=== PATIENT | female | born 1940 | race Caucasian/White ===

== ENCOUNTER → 2018-06-03 | Outpatient (CLI) | payer OTHER | LOC: M.RAD 08:38 | DX: M81.0 Age-related osteoporosis without current pathological fracture (principal); Z86.39 Personal history of other endocrine, nutritional and metabolic disease ==

== ENCOUNTER → 2018-09-25 | Outpatient (CLI) | payer OTHER | LOC: M.LAB 09:07 | DX: E87.6 Hypokalemia (principal) ==

== ENCOUNTER → 2019-02-16 | Outpatient (CLI) | payer OTHER | LOC: M.ULTRA 12:12 | DX: M79.89 Other specified soft tissue disorders (principal) ==

== ENCOUNTER 2019-06-15 10:36 | Inpatient (IN) | payer OTHER ==
[~2019-06-15] VITALS: Ht 167.6 cm; Wt 84.8 kg
--- NOTE | ~2019-06-15 | CON ---
[address] [address] CONSULTATION Name: AARONLETA L Room: [address] IN .R.#: [id number] Admission: 06/15/19 Attend Phys: Mary Munroe Discharge: Date of : 42 Report #: [id number] THIS REPORT FOR: //name// cc: Eliska. AVNI Light Eliska. AVNI ~ THIS REPORT FOR: //name// CC: Eliska. Kuldeep Corona CONSULTING PHYSICIAN: Edil Corona DO REASON FOR CONSULTATION: Hyponatremia. HISTORY OF PRESENT ILLNESS: A 79-year-old female with underlying mild dementia, who was admitted for altered behavior. She was found to be hyponatremic with a sodium of 117 yesterday. She has had some weight loss. 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 Pulmonology is following. She has been treated with saline. GI has also been consulted to evaluate swallow function. She currently appears to be comfortable, has no significant complaints, but has had rather significant weight loss on the order of 50 pounds over the past year. REVIEW OF SYSTEMS: Constitutional, psych, heme, eyes, ENT, respiratory, cardiac, GI, , endocrine all negative except as documented above. PAST MEDICAL HISTORY: History of mild dementia, osteoporosis, hip replacement, appendectomy, cholecystectomy, and hypertension. SOCIAL HISTORY: Prior history of smoking. No alcohol. FAMILY HISTORY: Not pertinent in this 79-year-old female. CURRENT MEDICATIONS: Reviewed. PHYSICAL EXAMINATION: VITAL SIGNS: Blood pressure is 165/82, pulse 82, respirations 16, temperature 37.0. GENERAL: No acute distress. EYES: Open. EARS: Externally normal. NECK: Supple. CARDIOVASCULAR: Regular rate. LUNGS: Diminished breath sounds. ABDOMEN: Soft. MUSCULOSKELETAL: [place] [address] CONSULTATION Name: LETA WALKER Qasim Room: [address] IN [facility]#: [id number] Admission: 06/15/19 Attend Phys: Mary Munroe Discharge: Date of : 42 Report #: [id number] PSYCHIATRIC: Awake, alert. LABORATORY DATA: Sodium 118, potassium was 4.6, chloride 85, bicarbonate 22, BUN 7, creatinine 0.3, glucose 90, calcium 8, COVID-19 PCR was negative. Yesterday's white cell count 4.5, hemoglobin 15.1, and platelets 207. ASSESSMENT: 1. Hyponatremia with sodium of 117 on 06/14. Prior value is not available. 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 She had a 50-pound weight loss over the past year. CT head with no acute findings. There is some mention of cirrhosis on imaging as well. 2. COVID-19 negative. 3. Cirrhosis suggested on CT scan. 4. Mild dementia. 5. Mild aortic stenosis with an EF of 55-60%. 6. Mild pericardial effusion on echo. 7. Osteoporosis. PLAN: Sodium is unchanged. She is on normal saline. We will discontinue that. Send a urine sodium, urine osmolarity, urine potassium as well as a TSH. Start 3% saline with parameters to stop it, so that we do not rapidly correct it and we will monitor sodium every 4 hours. Case was discussed with Dr. Corona and the patient's nurse. Pulmonology is following for the suspected pulmonary malignancy. Thank you for requesting my opinion in the care and management of this patient. By: [id number] Beto Steiner MD /arun
[2019-06-15 10:48] VITALS: BP 151/79
[2019-06-15 11:07] LABS: APTT 28.2 Seconds (25.0-31.3)
[2019-06-15 11:20] LABS: ALBUMIN 3.7 g/dL (3.4-5.0); CALCIUM 8.2 mg/dL (8.5-10.1); CK-MB MASS 1.5 ng/mL (<0.5-3.6); CREATININE 0.6 mg/dL (0.6-1.3); POTASSIUM 3.8 mmol/L (3.5-5.1); TOTAL BILIRUBIN 0.8 mg/dL (<0.1-1.0); TOTAL PROTEIN 7.8 g/dL (6.4-8.2)
[2019-06-15 11:27] LABS: ABSOLUTE BASOPHILS 0.1 thou/uL (0.0-0.2); ABSOLUTE EOSINOPHILS 0.1 thou/uL (0.0-0.7); ABSOLUTE LYMPHOCYTES 0.6 thou/uL (0.8-5.3); ABSOLUTE MONOCYTES 0.4 thou/uL (0.0-1.2); ABSOLUTE NEUTROPHILS 3.3 thou/uL (1.6-8.1); HEMATOCRIT 41.8 % (37.0-47.0); HEMOGLOBIN 15.1 gm/dL (12.0-15.0); LYMPHOCYTES 12.6 %; MCH 30.7 pg (26.0-34.0); MCHC 36.2 g/dL (28.0-37.0); MONOCYTES 8.4 %; MPV 6.6 fl. (7.2-11.1); NUCLEATED RBCS 0 /100WBC; PLATELET COUNT* 207 thou/uL (150-400); RBC 4.92 mil/uL (4.20-5.00); RDW-CV 14.5 % (10.5-14.5); WBC 4.5 thou/uL (4.0-11.0)
[2019-06-15] MEDS ORDERED: OMEPRAZOLE40 MG PO (11:44)
[2019-06-15] MEDS ORDERED: BUSPIRONE HCL5 MG PO (11:45)
[2019-06-15] MEDS ORDERED: FOSAMAX 70 MG T70 MG PO (11:46)
[2019-06-15 13:04] LABS: URINE BILIRUBIN NEGATIVE (Negative); URINE BLOOD TRACE (Negative); URINE CLARITY CLEAR; URINE COLOR YELLOW; URINE GLUCOSE-RANDOM NEGATIVE (Negative); URINE KETONES TRACE (Negative); URINE LEUKOCYTES-REFLEX NEGATIVE (Negative); URINE NITRITE-REFLEX NEGATIVE (Negative); URINE PROTEIN NEGATIVE (Negative); URINE UROBILINOGEN 0.2 E.U./dl (0.2-1.0)
--- NOTE | 2019-06-15 15:03 | EKG ---
[place] [address] ELECTROCARDIOGRAM REPORT Name: WALKERLETA L Room: [place] [address] ADM IN [facility]#: [id number] Admission: 06/15/19 Attend Phys: Edil Corona Discharge: Date of : 42 Date of Service: 06/15/19 1043 Report #: [id number] THIS REPORT FOR: //name// [facility] ED Test Date: 2019-06-15 Test Time: 10:43:12 Pat Name: LETA WALKER Department: Room: [facility] Gender: F Security Intelligence Analyst: veronica : 1940 Requested By: Gildardo Henderson Order Number: [id number] MD: Edin Youngblood Measurements Intervals [place] Rate: 81 P: 54 FL: 174 QRS: 54 QRSD: 96 T: 62 QT: 368 QTc: 428 Interpretive Statements Sinus rhythm Nonspecific T abnormalities, anterior leads No previous ECG available for comparison Electronically Signed On 06-15-2019 15:01:30 CDT by Edin Youngblood [email or web address] <ELECTRONICALLY SIGNED> By: Edin Youngblood MD, [facility] 06/15/19 1501 1043 1043 Edin Youngblood MD, [facility] /EPI
[2019-06-15 15:49] VITALS: BP 154/69
[2019-06-15 17:30] VITALS: BP 163/78
[2019-06-15 21:00] VITALS: BP 170/79
[2019-06-15 23:33] VITALS: BP 151/70
[2019-06-15 23:34] VITALS: BP 134/77; BP 159/78
[2019-06-16 04:44] VITALS: BP 161/80
[2019-06-16 05:25] LABS: CALCIUM 7.8 mg/dL (8.5-10.1); CREATININE 0.6 mg/dL (0.6-1.3)
[2019-06-16 08:03] VITALS: BP 160/70
[2019-06-16 11:13] LABS: CALCIUM 8.2 mg/dL (8.5-10.1); CREATININE 0.6 mg/dL (0.6-1.3); MAGNESIUM 1.7 mg/dL (1.8-2.4); POTASSIUM 3.9 mmol/L (3.5-5.1)
[2019-06-16 12:00] VITALS: BP 150/88
[2019-06-16 16:00] VITALS: BP 160/80
--- NOTE | 2019-06-16 16:35 | 2DMMODE ---
[place] [address] 2 D/M-MODE ECHOCARDIOGRAM Name: LETA WALKER Room: [address] IN [facility]#: [id number] Admission: 06/15/19 Attend Phys: Edil Corona Discharge: Date of : 42 Date of Service: 06/16/19 1633 Report #: [id number] THIS REPORT FOR: cc: Vincenzo Light. Vincenzo Nagy. Kevin Stover MD [facility] ~ APPROVED REPORT Study performed: 06/16/2019 15:45:07 EXAM: Comprehensive 2D, Doppler, and color-flow Echocardiogram Patient Location: In-Patient Room #: [facility] Status: routine BSA: 1.83 HR: 76 bpm BP: 150/88 mmHg Rhythm: NSR Other Information Study Quality: Good Indications EDEMA 2D Dimensions IVSd: 9.78 (7-11mm) LVOT Diam: 19.71 (18-24mm) LVDd: 43.91 mm PWd: 8.49 (7-11mm) LVDs: 27.58 (25-40mm) Aortic Root: 28.74 mm Volumes Left Atrial Volume (Systole) LA ESV Index: 26.50 mL/m2 Aortic Valve AoV Peak Abhijit.: 1.71 m/s AO Peak Gr.: 11.71 mmHg LVOT Max P.11 mmHg AO Mean Gr.: 6.92 mmHg LVOT Mean P.52 mmHg LVOT Max V: 1.13 m/s AO V2 VTI: 37.86 cm LVOT Mean V: 0.73 m/s ABIEL (VTI): 1.96 cm2 LVOT V1 VTI: 24.33 [place] [address] 2 D/M-MODE ECHOCARDIOGRAM Name: LETA WALKER Room: [address] IN ..#: [id number] Admission: 06/15/19 Attend Phys: Edil Corona Discharge: Date of : 42 Date of Service: 06/16/19 1633 Report #: [id number] Mitral Valve E/A Ratio: 0.76 MV Decel. Time: 258.99 ms MV E Max Abhijit.: 0.83 m/s MV PHT: 75.11 ms MVA (PHT): 2.93 cm2 TDI E/Lateral E': 10.38 E/Medial E': 10.38 Medial E' Abhijit.: 0.08 m/s Lateral E' Abhijit.: 0.08 m/s Pulmonary Valve PV Peak Abhijit.: 0.98 m/s PV Peak Gr.: 3.85 mmHg Tricuspid Valve RAP Estimate: 5.00 mmHg TR Peak Gr.: 23.35 mmHg RVSP: 28.00 mmHg PA Pressure: 28.00 mmHg Left Ventricle The left ventricle is normal size. There is normal LV segmental wall motion. There is normal left ventricular wall thickness. Left ventricular systolic function is normal. LVEF is 55-60%. Transmitral Doppler flow pattern suggests impaired LV relaxation. Right Ventricle The right ventricle is normal size. The right ventricular systolic function is normal. Atria The left atrium size is normal. The right atrium size is normal. Aortic Valve Mild aortic valve sclerosis. No aortic regurgitation is present. Mild aortic stenosis. Mitral Valve The mitral valve is normal in structure. Trace mitral regurgitation. No evidence of mitral valve stenosis. Tricuspid Valve The tricuspid valve is normal in structure. Trace tricuspid regurgitation. [place] [address] 2 D/M-MODE ECHOCARDIOGRAM Name: LETA WALKER Room: [address]#: [id number] Admission: 06/15/19 Attend Phys: Edil Corona Discharge: Date of : 42 Date of Service: 06/16/19 1633 Report #: [id number] Pulmonic Valve The pulmonary valve is normal in structure. There is no pulmonic valvular regurgitation. Great Vessels The aortic root is normal in size. IVC is normal in size and collapses >50% with inspiration. Pericardium Mild circumferential pericardial effusion. No echo indications of pericardial tamponade. <Conclusion> The left ventricle is normal size. There is normal left ventricular wall thickness. Left ventricular systolic function is normal. LVEF is 55-60%. Transmitral Doppler flow pattern suggests impaired LV relaxation. Mild aortic valve sclerosis. Mild aortic stenosis. Trace mitral regurgitation. Trace tricuspid regurgitation. No pulmonary hypertension. IVC is normal in size and collapses >50% with inspiration. Mild circumferential pericardial effusion. No echo indications of pericardial tamponade. <ELECTRONICALLY SIGNED> By: Kevin Majano MD, FACC 06/16/19 1633 1633 1633 Kevin Majano MD, FACC /INF
[2019-06-16 19:45] VITALS: BP 172/82
[2019-06-17 00:05] VITALS: BP 168/78
[2019-06-17 08:00] VITALS: BP 174/77
[2019-06-17 08:15] VITALS: BP 174/77
--- NOTE | 2019-06-17 08:27 | EKG ---
[place] [address] ELECTROCARDIOGRAM REPORT Name: LETA WALKER Room: [address] ADM IN M.R.#: [id number] Admission: 06/15/19 Attend Phys: Edil Corona Discharge: Date of : 42 Date of Service: 06/16/19 1043 Report #: [id number] THIS REPORT FOR: //name// [facility] ED Test Date: 2019-06-16 Test Time: 10:43:26 Pat Name: LETA WALKER Department: Room: [address] Gender: F Cotton Factor: CHRISTINA : 1940 Requested By: Edil Corona Order Number: [id number] Reading MD: Kevin Majano Measurements Intervals [place] Rate: 81 P: [place]: QRS: 24 QRSD: 98 T: 35 QT: 393 QTc: 457 Interpretive Statements Sinus rhythm Ventricular premature complex Artifact Baseline wander in lead(s) V2 Compared to ECG 06/15/2019 10:43:12 Ventricular premature complex(es) now present T-wave abnormality no longer present Electronically Signed On 06-17-2019 8:26:00 CDT by Kevin Majano [email or web address] <ELECTRONICALLY SIGNED> By: Kevin Majano MD, FACC 06/17/19 0826 1043 1043 Kevin Majano MD, FAC /EPI
[2019-06-17 09:12] LABS: CREATININE 0.3 mg/dL (0.6-1.3); POTASSIUM 4.6 mmol/L (3.5-5.1)
[2019-06-17 10:49] VITALS: BP 165/82
[2019-06-17 12:55] LABS: URINE POTASSIUM-RANDOM 17.4 mmol/L
[2019-06-17 16:23] VITALS: BP 158/65
[2019-06-17 20:00] VITALS: BP 149/86
[2019-06-18] VITALS (8 sets, daily range): BP systolic 127–184; BP diastolic 77–89
--- NOTE | 2019-06-18 08:19 | CON ---
[address] [address] CONSULTATION Name: AARONLETA L Room: [address] IN .R.#: [id number] Admission: 06/15/19 Attend Phys: Mary Munroe Discharge: Date of : 42 Report #: [id number] THIS REPORT FOR: //name// cc: Vincenzo Light. Vincenzo Nagy. AVNI ~ THIS REPORT FOR: //name// CC: Eliska. Kuldeep Corona DATE OF SERVICE: 06/17/2019 HISTORY OF PRESENT ILLNESS: This is a pleasant 79-year-old female. REASON FOR GI CONSULTATION: Trouble swallowing. The patient has dementia and is unable to provide history, and I tried contacting her significant other, Mr. Liang Montgomery, but I was unable to reach him via phone. History has been therefore obtained from the chart. It appears that the patient was brought in because of increased confusion and over the course of hospitalization has been diagnosed with severe hyponatremia. The patient reports difficulty swallowing, mostly to solids not liquids. She cannot give me an estimate of how much time this has been going on for. She denies any pain on swallowing and passed bedside swallow evaluation. PAST MEDICAL HISTORY: Hypertension, dementia. PAST SURGICAL HISTORY: Left hip replacement, total abdominal hysterectomy, appendectomy, cholecystectomy. SOCIAL HISTORY: The patient quit smoking well over 50 years back. Denies alcohol or recreational drug use. FAMILY HISTORY: Not known. REVIEW OF SYSTEMS: Comprehensive 10-point review of systems is negative except for what was mentioned in the HPI. PHYSICAL EXAMINATION: GENERAL: The patient is alert and awake VITAL SIGNS: Temperature 37.0, pulse rate 82, respirations 16, blood pressure 165/82, pulse oximetry 98% on room air. HEENT: The patient mucous membranes are moist. There is no congestion. LUNGS: Clear to auscultation bilaterally. CARDIOVASCULAR: Rate and rhythm regular, S1, S2 present. ABDOMEN: Soft. There is no distention, guarding or rigidity. EXTREMITIES: Warm, well perfused. [place] [address] CONSULTATION Name: LETA WALKER Room: [address] IN [facility]#: [id number] Admission: 06/15/19 Attend Phys: Mary Munroe Discharge: Date of : 42 Report #: [id number] SKIN: Warm and dry. LABORATORY DATA: Hemoglobin 14.1, hematocrit 41.8, platelet count 207, WBC count 4.5. Sodium 118, potassium 4.6, chloride 85, bicarbonate 22, BUN 7, creatinine 0.3. INR 1.0. IMAGING: Chest CT; this shows a large infiltrative soft tissue mass within the right paratracheal hilar region, most consistent with primary pulmonary malignancy and metastatic lymphadenopathy. This encases and narrows the proximal right main stem bronchus. Bulky adenopathy within the anterior mediastinum posterior to the clavicular heads, consistent with metastatic disease. Small indeterminate nodules in the lungs, which may represent metastatic disease. Nodular contour of liver suggesting underlying cirrhosis. ASSESSMENT AND PLAN: This is a pleasant 79-year-old female presenting with confusion. She has a baseline history of dementia. PROBLEM: Dysphagia. The patient has bulky mediastinal lymphadenopathy and mass, and this is contributing to her dysphagia. She will need an EGD for evaluation; however, sodium is too low to allow for EGD. Once her sodium is above 130 we can consider doing an upper GI endoscopy. The patient will also need an EUS for evaluation of her pulmonary masses and hilar disease. However, this is available at [place] and the patient will need to be transferred to [place] for this. Before we proceed with any other procedures, we will have to await the patient's sodium to improve. Thank you for this consultation. <ELECTRONICALLY SIGNED> By: Evans Jones MD 06/18/19 0819 1243 [id number] Jones MD /nt
[2019-06-18 10:30] LABS: CALCIUM 8.3 mg/dL (8.5-10.1); CREATININE 0.6 mg/dL (0.6-1.3); MAGNESIUM 1.7 mg/dL (1.8-2.4); POTASSIUM 3.1 mmol/L (3.5-5.1)
[2019-06-18 11:40] LABS: ALBUMIN 3.4 g/dL (3.4-5.0); TOTAL PROTEIN 7.4 g/dL (6.4-8.2)
[2019-06-18 21:31] LABS: POTASSIUM 3.9 mmol/L (3.5-5.1)
[2019-06-19] VITALS: BP 176/81
[2019-06-19 04:00] VITALS: BP 181/88
[2019-06-19 08:00] VITALS: BP 174/86
[2019-06-19 12:02] VITALS: BP 168/81
[2019-06-19 12:32] LABS: CALCIUM 8.5 mg/dL (8.5-10.1); CREATININE 0.7 mg/dL (0.6-1.3); POTASSIUM 4.1 mmol/L (3.5-5.1)
[2019-06-19 12:51] LABS: MAGNESIUM 1.9 mg/dL (1.8-2.4)
== END 2019-06-19 18:55 | disposition short-term general hospital (02) | DRG 643 ==
LOC: M.ERS 10:36 → M.ORTHSURG 12:27 → M.TBA-ER 12:27 → M.ORTHSURG 16:05 → M.2W 06-17 10:22
PROVIDERS: Family Medicine; Internal Medicine Nephrology; ADMIT Internal Medicine
PROC: 05HY33Z Insertion of Infusion Device into Upper Vein, Percutaneous Approach (ICD-10-PCS; principal; 2019-06-16)
DX: E22.2 Syndrome of inappropriate secretion of antidiuretic hormone (principal); G93.41 Metabolic encephalopathy; I31.3 Pericardial effusion (noninflammatory); F03.90 Unspecified dementia, unspecified severity, without behavioral disturbance, psychotic disturbance, mood disturbance, and anxiety; I10 Essential (primary) hypertension; M81.0 Age-related osteoporosis without current pathological fracture; Z20.828 Contact with and (suspected) exposure to other viral communicable diseases; K74.60 Unspecified cirrhosis of liver; I35.0 Nonrheumatic aortic (valve) stenosis; Z96.642 Presence of left artificial hip joint; R13.10 Dysphagia, unspecified; R59.1 Generalized enlarged lymph nodes; F41.9 Anxiety disorder, unspecified; E86.0 Dehydration; R63.4 Abnormal weight loss; Z90.49 Acquired absence of other specified parts of digestive tract; Z87.891 Personal history of nicotine dependence; Z68.30 Body mass index [BMI] 30.0-30.9, adult